=== PATIENT | female | born 1950 | race Caucasian/White ===

== ENCOUNTER 2016-09-09 09:10 | Outpatient (CLI) | payer MEDICARE ==
--- NOTE | 2016-09-09 10:31 | RAD ---
THREE VIEWS OF LEFT RIBS 09/09/2016 HISTORY: Injury after a fall on September 01, 2016. FINDINGS: There is minimal left apical pleural thickening. There is minimal atelectasis versus scarring at th e left lung base. The lungs are otherwise clear. No left-sided rib fracture is seen. Vascular agapito cification is seen in the thoracic aorta. IMPRESSION: No left-sided rib fracture is visualized. POS: [facility]
== END 2016-09-09 09:11 | disposition home or self-care (01) ==
LOC: MADRAD 09:10
PROVIDERS: ATTEND Family Medicine
DX: R07.81 Pleurodynia (principal)

== ENCOUNTER 2016-11-05 08:51 | Outpatient (CLI) | payer MEDICARE ==
[2016-11-05 09:25] LABS: ALT (SGPT) 22 U/L (8-55); AST (SGOT) 17 U/L (5-34)
[2016-11-05 11:07] LABS: Hemoglobin 14.1 g/dL (12.0-16.0); Mean Corpuscular Hemoglobin 30.4 pg (27.0-31.0); Mean Corpuscular Volume 92.3 fl (81.0-99.0); Mean Platelet Volume 10.4 fL (7.4-10.4); Platelet Count 165 thou/uL (130-400); RBC Distribution Width 12.4 % (11.5-14.5); Red Blood Cell (RBC) Count 4.64 mill/uL (4.20-5.40); White Blood Cell (WBC) Count 4.9 thou/uL (4.8-10.8)
== END 2016-11-05 08:52 | disposition home or self-care (01) ==
LOC: MADLAB 08:51
PROVIDERS: ATTEND Psychiatry & Neurology Neurology
DX: G35 Multiple sclerosis (principal)
CPT/HCPCS: 36415; 82306; 84450; 84460; 85027

== ENCOUNTER 2024-04-09 19:20 | Emergency (ER) | payer MEDICARE | END 2024-04-09 20:50 | disposition home or self-care (01) | LOC: MADERS 19:20 | DX: S00.03XA Contusion of scalp, initial encounter (principal); Z55.6 Problems related to health literacy; W01.10XA Fall on same level from slipping, tripping and stumbling with subsequent striking against unspecified object, initial encounter; Y93.89 Activity, other specified | CPT/HCPCS: 70450; 72125 ==